=== PATIENT | female | born 1945 | race Caucasian/White ===

== ENCOUNTER 2017-05-23 17:19 | Observation (INO) | payer MEDICARE ==
[~2017-05-23] VITALS: Ht 165.1 cm; Wt 76.7 kg
--- NOTE | 2017-05-23 01:00 | NUR ---
PT SNORING SLIGHTLY, ON BACK. RESP EVEN AND UNLABORED.
--- NOTE | 2017-05-23 20:30 | NUR ---
PT ADMITTED TO ROOM 121 FROM ER R/T CVA. PRESENTED AT URGENT CARE EARLIER IN DAY FOR SYMPTOMS OF WEAKNESS THAT DID NOT RESOLVE FROM 05/22/17 WHERE SHE HAD WEAKNESS IN LEFT SIDE [place], FELT TODAY THAT SHE DIDN'T HAVE MUCH CONTROL SHE FELT SHE SHOULD HAVE. PT IS ALERT AND ORIENTATED. TAKES NO MEDICATIONS, HAS NO PCP AND STATES SHE HASN'T SEEN A DR. SINCE SHE HAD HER SON, WITH EXCEPTION OF HAVING A WRIST REPAIRED. DR MCGOWAN AWARE OF PT BLOOD PRESSURE 207/91, PT DENIES HEADACHE. PT AMBULATED WITH SBA TO THE BATHROOM SHORTLY AFTER ARRIVING TO THE FLOOR. DENIES PAIN, NATIONAL INVESTIGATIVE PRODUCER EQUAL, NOTE NO FACIAL DROOPINESS, NOR ANY AFFECTED SPEECH AT THIS TIME.
--- NOTE | 2017-05-23 21:15 | NUR ---
PT REQUESTED SOME CHICKEN NOODLE SOUP WITH CRACKERS. DRANK WATER WITHOUT COUGHING, NOTE NO DIFFICULTIES. DR. MCGOWAN ASSESSMENT PT NEAR 2030, ORDERED A CARDIC DIET. PT REFUSED A SANDWICH, STATING SHE IS PICKY ABOUT HER BREAD. ANXIOUS ABOUT HAVING AN IV STARTED, QUESTIONED WHY SHE NEEDS ONE. CURRENTLY PT HAS COMPANY, HER SON AND A FEMALE VISITING AT BEDSIDE. PT TALKING WITH NO SLURRING OF WORDS.
--- NOTE | 2017-05-23 23:00 | NUR ---
PT WITH LIGHTS OUT, EYES CLOSED RESP EVEN AND UNLABORED. TELE WITH HEART RATE IN THE 60'S, SR.
--- NOTE | 2017-05-24 01:00 | NUR ---
PT WITH EYES CLOSED, RESP EVEN AND UNLABORED. NOTE SLIGHT SNORING. TELE WITH HR IN THE 60'S, SR.
--- NOTE | 2017-05-24 02:30 | NUR ---
PT USED CALL LIGHT TO USE THE BATHROOM. SBA, WITH NO NOTEABLE WEAKNESS, BUT PT STATES SHE NOTICES HER LEFT LEG IS "DELAYED" STILL. NOTE INSIDE SALES ASSOCIATE, WITH LEFT HAND SORTER PRICER SLIGHTLY WEAKER THAN THE RIGHT. PT ALERT AND ORIENTATED, NO COUGHING AFTER DRINKING. EQUAL SMILE, NOTE NOT WEAKNESS ASSESSING HER LEGS, OR ARMS. NOTE BLOOD PRESSURE IMPROVED AT 137/77
--- NOTE | 2017-05-24 03:30 | NUR ---
PT IN BED, ON HER BACK, WITH EYES CLOSED, RESP EVEN AND UNLABORED.
--- NOTE | 2017-05-24 05:48 | NUR ---
PT ADMITTED FOR CVA SYMPTOMS. BP WAS ELEVATED UPON ADMISSION 207/91, WITH NO COMPLAINTS. EQUAL SALES PROJECT COORDINATOR WITH SL WEAKNESS ON THE LEFT SIDE BOTH LEG AND ARMS. STEADY AMBULATION, WITH ONE PERSON. SWALLOW IS ADEQUATE, WITH NO COUGHING AFTERWARDS AND NO COMPLAINTS OF DIFFICULTIES WITH SWALLOWING. PT HAS NOT SEEN A PCP SINCE THE , TAKES NO ROUTINE MEDICATIONS PRIOR TO HOSPITALIZATION. CALLS APPROPRIATE FOR ASSISTANCE.
--- NOTE | 2017-05-24 07:22 | NUR ---
BEDSIDE HANDOFF REPORT RECEIVED FROM EXPENDITURE REQUISITION CLERK RN. PT RESTING IN BED. PT DENIES NEEDS AT THIS TIME.
--- NOTE | 2017-05-24 08:00 | NUR ---
PT RESTING IN BED. PT DENIES PAIN. STROKE ASSESSMENT SCORE 0, NO DEFICITS NOTED. PT ON ROOM AIR, LUNG SOUNDS CLEAR. PT SALINE LOCKED. PT DENIES NAUSEA, BOWEL TONES ACTIVE. CMS INTACT, NO EDEMA NOTED. PT SBA TO BATHROOM. LENGTHY EDUCATION ON STROKE, PLAN OF CARE. PT ASKING QUESTIONS. PT DENIES NEEDS AT THIS TIME.
--- NOTE | 2017-05-24 10:50 | NUR ---
MD TO BEDSIDE TO EVAULATE PT. PLAN FOR PHYSICAL THERPAY, CAROTID ULTRASOUND AND POSSIBLE DISCHARGE TODAY. PT ASSISTED TO SIT IN CHAIR. PT DENIES NEEDS AT THIS TIME.
--- NOTE | 2017-05-24 11:15 | NUR ---
PT IS SITTING UP IN CHAIR, VITALS TAKEN. BP HIGH, NURSE NOTIFIED
--- NOTE | 2017-05-24 11:26 | NUR ---
NOTIFIED OF HYPERTENSION, BP 189/77. NO NEW ORDERS AT THIS TIME.
[2017-05-24] MEDS ORDERED: ATORVASTATIN CA80 MG PO (12:49)
[2017-05-24] MEDS ORDERED: AMLODIPINE BESYL5 MG PO (12:50)
[2017-05-24] MEDS ORDERED: ASPIRIN EC81 MG PO (12:50)
--- NOTE | 2017-05-24 14:16 | NUR ---
PT IS SITTING UP IN BED WAITHING TO BE DISCHARGED. VITALS TAKEM
--- NOTE | 2017-05-24 22:04 | EKG ---
[facility] [address] [facility] [place] [address] Signed Sinus rhythm with sinus arrhythmia with occasional premature ventricular complexes Possible Left atrial enlargement Borderline ECG No previous ECGs available Confirmed by KATELYN MCGOWAN MD ([id number]) on 05/24/2017 10:04:29 PM Electronically Signed By: KATELYN MCGOWAN MD 05/24/17 2204 PATIENT NAME: ARUNAJANUARY LAILA Electrocardiogram DATE OF : 49 PHYSICIAN: KATELYN MCGOWAN MD REPORT #: [id number] REPORT IS CONFIDENTIAL AND NOT TO BE RELEASED WITHOUT AUTHORIZATION
== END 2017-05-24 14:15 | disposition home or self-care (01) ==
LOC: ED 17:19 → MS 17:21
PROVIDERS: ADMIT Internal Medicine
DX: I63.9 Cerebral infarction, unspecified (principal); G81.94 Hemiplegia, unspecified affecting left nondominant side; I47.1 Supraventricular tachycardia; I10 Essential (primary) hypertension; E78.5 Hyperlipidemia, unspecified
CPT/HCPCS: 70450; 71010; 80053; 80061; 83036; 83735; 84155; 84165; 85025; 93005; 93010; 93880; 96372; 97161; 99285; G0378; G8978; G8979; G8980; J1650